=== PATIENT | male | born 1980 | race Caucasian/White ===

== ENCOUNTER 2018-10-30 20:06 | Emergency (ER) | payer OTHER ==
[~2018-10-30] VITALS: Ht 175.3 cm; Wt 91.0 kg
[~2018-10-30 20:06] MED LIST: CLIN-96 PO; HYDR-4383 PO
[2018-10-30 20:21] VITALS: BP 143/81
[2018-10-30] MEDS ORDERED: TETanus/Pertussis (Acell)/Diphther VAC/PF (Tdap-Adult) 0.5ml syringe IM ONE (20:40)
[2018-10-30] MEDS ORDERED: LIDOcaine 1% w/epiNEPHrine 1:200,000 30ml vial IM ONE (20:40)
== END 2018-10-30 21:21 | disposition home or self-care (01) ==
LOC: ER 20:07
DX: S81.811A Laceration without foreign body, right lower leg, initial encounter (principal); Z86.14 Personal history of Methicillin resistant Staphylococcus aureus infection; Z98.890 Other specified postprocedural states; Z79.2 Long term (current) use of antibiotics; W27.0XXA Contact with workbench tool, initial encounter; Y93.H2 Activity, gardening and landscaping; Y92.096 Garden or yard of other non-institutional residence as the place of occurrence of the external cause; Y99.8 Other external cause status
CPT/HCPCS: 12004; 90471; 99283

== ENCOUNTER 2021-10-19 09:31 | Emergency (ER) | payer MEDICAID ==
[~2021-10-19] VITALS: Ht 175.3 cm; Wt 90.9 kg
[~2021-10-19 09:31] MED LIST changes: -CLIN-96 PO; +CLIN-97 PO
[2021-10-19] MEDS ORDERED: LIDOcaine 1% W/epiNEPHrine 1:200,000 10ml vial IJ ONE (10:00)
[2021-10-19] MEDS ORDERED: LIDOcaine 1% W/epiNEPHrine 1:100,000 20ml vial IJ ONE (10:15)
[2021-10-19] MEDS ORDERED: TETanus/Pertussis (Acell)/Diphther VAC/PF (Tdap-Adult) 0.5ml syringe IMVAC ONE (10:20)
[2021-10-19] MEDS ORDERED: bacitracin 15gm ointment TP ONE (10:30)
[2021-10-19 10:44] VITALS: BP 113/87
== END 2021-10-19 11:01 | disposition home or self-care (01) ==
LOC: ER 09:31
DX: S81.812A Laceration without foreign body, left lower leg, initial encounter (principal); Z86.14 Personal history of Methicillin resistant Staphylococcus aureus infection; W29.3XXA Contact with powered garden and outdoor hand tools and machinery, initial encounter; Y93.89 Activity, other specified; Y92.89 Other specified places as the place of occurrence of the external cause; Y99.8 Other external cause status
CPT/HCPCS: 12002; 99282; L3260; 90715; A6258